=== PATIENT | male | born 1950 | race Caucasian/White ===

== ENCOUNTER 2024-08-13 21:16 | Emergency (ER) | payer OTHER ==
--- OUTSIDE RECORDS SUMMARY | 2024-08-13 21:20 | XMS REPORT | Clinical Summary ---
Author Name Unknown Organization [facility] Address [address] [place] [address] Care Team Providers Care Sexual Assault Counsellor Name Role Phone Yani Valdivia MD Primary Care Provider + [phone] Allergies No known active allergies Medications Medication Sig Dispensed Refills Start Date End Date Status alendronate (FOSAMAX) 35 mg tablet Take 1 tablet (35 mg) by mouth every 7 days. 10/23/2023 Active amLODIPine (NORVASC) 5 mg tablet Take 1 tablet (5 mg) by mouth daily. 08/08/2023 Active atorvastatin (LIPITOR) 20 mg tablet Take 1 tablet (20 mg) by mouth daily. Active glipiZIDE (GLUCOTROL) 5 mg tablet Take 1 tablet (5 mg) by mouth every morning before breakfast. Active levothyroxine (SYNTHROID, LEVOTHROID) 50 mcg tablet Take 1 tablet (50 mcg) by mouth daily. 09/16/2023 Active losartan (COZAAR) 100 mg tablet Take 1 tablet (100 mg) by mouth daily. Active metFORMIN (GLUCOPHAGE) 1000 mg tablet Take 1 tablet (1,000 mg) by mouth 2 (two) times a day with meals. 09/23/2023 Active rosuvastatin (CRESTOR) 5 mg tablet Take 1 tablet (5 mg) by mouth at bedtime. 08/21/2023 Active triamcinolone (KENALOG) ointment 0.1%Indications:Stasis dermatitis Apply twice a day as needed for itching on rash on the lower legs for a max of 2 weeks 80 g 2 10/25/2023 Active Encounters Date Type Department Care Team Description 10/25/2023 2:00 PM BASKET BOTTOM MACHINE OPERATOR Office Visit [facility] - Dermatology [address] [facility], [address] [place] [address] Yani Valdivia MD Melanocytic nevus of trunk (Primary Dx); Seborrheic keratosis; Hemangioma of skin and subcutaneous tissue; Actinic keratosis; Irritated basal cell papilloma; Stasis dermatitis 10/25/2023 1:30 PM BASKET BOTTOM MACHINE OPERATOR NPR MDA PATIENT ACCESS 10/25/2023 Travel after 08/14/2023 Surgical History Surgery Date Site/Laterality Comments HIP ARTHROPLASTY 10/07/2015 - 10/06/2016 Left WRIST SURGERY 10/07/2015 - 10/06/2016 Left LEG SURGERY 10/07/2018 - 10/06/2019 Left Medical History Medical History Date Comments Essential (primary) hypertension Hyperlipidemia Type 2 diabetes mellitus without complication Family History Medical History Relation Name Comments Lung cancer Father -Unknown cancer Mother Relation Name Status Comments Father Mother Social History Tobacco Use Types Packs/Day Years Used Date Smoking Tobacco: Never Passive Smoke Exposure: Never Smokeless Tobacco: Never Alcohol Use Standard Drinks/Week Comments Yes 0 (1 standard drink = 0.6 oz pur e alcohol) Rarely Sex and Gender Information Value Date Recorded Sex Assigned at Not on file Gender Identity Not on file Sexual Orientation Not on file Job Start Date Occupation Industry Not on file Not on file Not on file Obstetrics History Last Filed Vital Signs Vital Sign Reading Time Taken Comments Blood Pressure 129/61 10/25/2023 1:59 PM BASKET BOTTOM MACHINE OPERATOR Pulse 72 10/25/2023 1:59 PM BASKET BOTTOM MACHINE OPERATOR Temperature - - Respiratory Rate 16 10/25/2023 1:59 PM BASKET BOTTOM MACHINE OPERATOR Oxygen Saturation - - Inhaled Oxygen Concentration - - Weight 90.1 kg (198 lb 10.2 oz) 10/25/2023 1:59 PM BASKET BOTTOM MACHINE OPERATOR Height 165 cm (5' 4.96") 10/25/2023 1:59 PM BASKET BOTTOM MACHINE OPERATOR Body Mass Index 33.09 10/25/2023 1:59 PM BASKET BOTTOM MACHINE OPERATOR Plan of Treatment Upcoming Encounters Date Type Department Care Team (Late st Contact Info) Description 08/21/2024 9:45 AM BASKET BOTTOM MACHINE OPERATOR Follow-Up [facility] - Dermatology [address] [facility], [address] [place] [address] Yani Valdivia MD [address] [place] [address] [email or web address] Health Maintenance Due Date Last Done Comments Pneumococcal Vaccine: 65+ Years (1 of 1 - PCV) 013 COVID-19 Vaccine ( - 2023-25 season) 2024 Influenza Vaccine (#1) 2024 Care Teams Sexual Assault Counsellor Relationship Specialty Start Date End Date Yani Valdivia MD [address] [place] [address] [email or web address] PCP - General Dermatology 07/11/23
[2024-08-14] MEDS ORDERED: ONDANSETRON 4 MG/2 ML VIAL ONE (00:25)
[2024-08-14] MEDS ORDERED: MORPHINE 4 MG/ML SYR ONE (00:26)
[2024-08-14 00:48] LABS: Absolute Basophils 0.1 K/uL (0-0.5); Absolute Eosinophils 0.2 K/uL (0-0.5); Absolute Lymphocytes (CBC) 2.2 K/uL (0.7-4.9); Absolute Monocytes 0.7 K/uL (0.1-1.3); Absolute Neutrophil 8.4 K/uL (1.8-8.0); Basophils % 0.9 % (0-1.3); Eosinophils % 1.4 % (0-4.4); Hematocrit 46.1 % (39.6-49.0); Hemoglobin 15.4 g/dL (13.6-17.9); Lymphocytes % 18.8 % (15.3-44.8); MCH 29.4 pg (27.0-35.0); MCHC 33.4 g/dL (32.0-36.0); MCV 88.1 fL (80-100); MPV 9.6 fL (7.6-11.3); Monocytes % 5.7 % (3.3-12.3); Neutrophils % 73.2 % (41.7-73.7); Nucleated Red Blood Cells % 0.1 % (0-0); Platelets 227 thou/uL (152-406); RBC Red Blood Cell Count 5.23 M/uL (4.33-5.43); Red Cell Distribution Width 14.4 % (12.1-15.2)
[2024-08-14 01:11] LABS: Specific Gravity 1.008 (1.005-1.030); Sqamous Epithelial None Seen /HPF (None Seen); Urine Bacteria None Seen /HPF (<20); Urine Bilirubin NEGATIVE (Negative); Urine Blood Negative (Negative); Urine Clarity Clear (Clear); Urine Color Light-Yellow (Yellow); Urine Culture Reflex Order NOT NEEDED; Urine Glucose 3+ (Negative); Urine Ketones TRACE (Negative); Urine Micro Reflex YN NO BILL MICROSCOPIC; Urine Nitrite NEGATIVE (Negative); Urine Protein NEGATIVE (Negative); Urine RBC <5 /HPF (None Seen); Urine Urobilinogen Normal (Normal); Urine WBC None Seen /HPF (<5); Urine pH 6.5 (5.0-7.0)
[2024-08-14 01:13] LABS: Albumin 3.6 g/dL (3.4-5.0); Albumin/Globulin Ratio 0.9 (1.1-1.8); Anion Gap 12.3 mEq/L (5.0-15.0); Bilirubin Total 0.6 mg/dL (0.2-1.0); Globulin 3.9 g/dL (2.3-3.5); Protein, Total 7.5 g/dL (6.4-8.2)
[2024-08-14 01:15] LABS: Potassium 4.3 mEq/L (3.5-5.1)
--- NOTE | 2024-08-14 01:42 | ER ---
Nurse's Notes [facility] Name: Kirill Denton Age: 74 yrs Sex: Male : 1950 Arrival Date: 08/13/2024 Time: 21:16 Bed 7 Private MD: Diagnosis: Lumbago with sciatica, left side Presentation: 08/13 21:39 Coronavirus screen: Client denies travel out of the [place] in the last 14 days. Ebola tm6 Screen: Patient negative for fever greater than or equal to 101.5 degrees Fahrenheit, and additional compatible Ebola Virus Disease symptoms Patient denies exposure to infectious person. Patient denies travel to an Ebola-affected area in the 21 days before illness onset. No symptoms or risks identified at this time. 21:39 Acuity: HERNANDO 3 tm6 21:39 Method Of Arrival: Wheelchair tm6 21:40 Chief complaint: Patient states: had a "twinge" in left lower back for two weeks, but tm6 tonight I was on my riding mower and it started to hurt a lot worse. Initial Sepsis Screen: Does the patient meet any 2 criteria? No. Patient's initial sepsis screen is negative. Does the patient have a suspected source of infection? No. Patient's initial sepsis screen is negative. Risk Assessment: Do you want to hurt yourself or someone else? Patient reports no desire to harm self or others. Onset of symptoms was August 30, 2024. Triage Assessment: 21:41 General: Appears in no apparent distress. Behavior is calm, cooperative. Pain: tm6 Complains of pain in left low back Pain currently is 10 out of 10 on a pain scale. EENT: No signs and/or symptoms were reported regarding the EENT system. Neuro: Level of Consciousness is awake, alert, obeys commands, Oriented to person, place, time, situation. Cardiovascular: Patient's skin is warm and dry. Respiratory: Airway is patent Respiratory effort is even, unlabored, Respiratory pattern is regular, symmetrical. GI: No signs and/or symptoms were reported involving the gastrointestinal system. Abdomen is flat, non-distended. : Reports pain in left flank(s). Derm: No signs and/or symptoms reported regarding the dermatologic system. Musculoskeletal: Reports pain in left low back Pain is 10 out of 10 on a pain scale. Historical: - Allergies: 21:41 No Known Allergies; tm6 - PMHx: 21:41 Diabetes mellitus; Hypertensive disorder; Hypercholesterolemia; Hypothyroidism; polio; tm6 - PSHx: 21:41 left hip repair; bilateral leg surgery from polio; tm6 - Immunization history:: Client reports receiving the 2nd dose of the Covid vaccine. - Infectious Disease History:: Denies. - Social history:: Smoking status: Patient denies any tobacco usage or history of. Patient/guardian denies using alcohol. Screenin/08 01:04 [facility] ED Fall Risk Assessment (Adult) History of falling in the last 3 months, al5 including since admission No falls in past 3 months (0 pts) Confusion or Disorientation No (0 pts) Intoxicated or Sedated No (0 pts) Impaired Gait No (0 pts) Mobility Assist Device Used No (0 pt) Altered Elimination No (0 pt) Score/Fall Risk Level 0 - 2 = Low Risk Oriented to surroundings, Maintained a safe environment, Hourly rounding (assess needs \\T\\ fall precautionary measures) done. Abuse screen: Denies threats or abuse. Denies injuries from another. Nutritional screening: No deficits noted. Tuberculosis screening: No symptoms or risk factors identified. Assessment: 00:24 General: Appears in no apparent distress. uncomfortable, Behavior is calm, cooperative. al5 Pain: Complains of pain in left low back Pain currently is 8 out of 10 on a pain scale. Neuro: Level of Consciousness is awake, alert, obeys commands, Oriented to person, place, time, situation. Cardiovascular: Capillary refill < 3 seconds Patient's skin is warm and dry. Respiratory: Airway is patent Respiratory effort is even, unlabored, Respiratory pattern is regular, symmetrical. GI: Bowel sounds present X 4 quads. Abd is soft and non tender X 4 quads. : Reports pain in left flank(s), in lower back. EENT: No signs and/or symptoms were reported regarding the EENT system. Derm: Skin is intact, Skin is pink, warm \\T\\ dry. normal. Musculoskeletal: No signs and/or symptoms reported regarding the musculoskeletal system. 01:58 Reassessment: Patient appears in no apparent distress at this time. Patient and/or al5 family updated on plan of care and expected duration. Pain level reassessed. Patient is alert, oriented x 3, equal unlabored respirations, skin warm/dry/pink. pain decreased, but still is in pain. Vital Signs: 08/13 21:39 Pulse 79; Resp 18; Temp 98.6(O); Pulse Ox 98% on R/A; Weight 86.18 kg; Height 5 ft. 5 tm6 in. ; Pain 10/10; 21:40 BP 140 / 72; MAP 92 mmHg; tm6 08/14 00:10 BP 133 / 83; Pulse 75; Resp 16; Pulse Ox 95% on R/A; al5 00:30 BP 147 / 67; Pulse 74; Resp 18; Pulse Ox 95% on R/A; al5 01:00 BP 106 / 73; Pulse 74; Resp 17; Pulse Ox 94% on R/A; al5 02:00 BP 131 / 81; Pulse 70; Resp 16; Pulse Ox 97% on R/A; al5 02:15 BP 113 / 81; Pulse 71; Resp 16; Pulse Ox 94% on R/A; al5 02:30 BP 123 / 67; Pulse 68; Resp 15; Pulse Ox 95% on R/A; al5 08/13 21:39 Body Mass Index 31.62 (86.18 kg, 165.1 cm) tm6 08/13 21:39 Pain Scale: Adult tm6 ED Course: 08/13 21:20 Patient arrived in ED. jj6 21:20 Joseph Farmer MD is Attending Physician. ec2 21:25 Inserted saline lock: 22 gauge in right antecubital area, using aseptic technique. ha1 Blood collected. Flushed with 10 mL NS. 21:39 Triage completed. tm6 21:41 Arm band placed on right wrist. tm6 08/14 00:15 Sara Lua, COREY is Primary Nurse. al5 00:52 CT Abd/Pelvis - Without Contrast In Process Unspecified. EDMS 01:05 Patient has correct armband on for positive identification. Bed in low position. Call al5 light in reach. Side rails up X2. Provided Education on: plan of care. 01:05 No provider procedures requiring assistance completed. al5 02:30 IV discontinued, intact, bleeding controlled, No redness/swelling at site. Pressure al5 dressing applied. Administered Medications: 00:35 Drug: Ondansetron IVP 4 mg IVP once; over 2 minutes Route: IVP; Site: right antecubital;al5 02:17 Follow up: Response: No adverse reaction; Nausea is decreased al5 00:35 Drug: morphine IVP or IV 4 mg IVP once over 4 mins Route: IVP; Infused Over: 4 mins; al5 Site: right antecubital; 02:17 Follow up: Response: No adverse reaction; Pain is decreased; Pain is decreased, still al5 in a lot of pain 02:13 Drug: Diazepam IVP 5 mg IVP once Route: IVP; Site: right antecubital; al5 02:40 Follow up: Response: No adverse reaction; Pain is decreased al5 Medication: 01:05 VIS not applicable for this client. al5 Outcome: 01:41 Discharge ordered by . ec2 02:30 Discharged to home via wheelchair, with significant other, al5 02:30 Condition: good 02:30 Discharge instructions given to patient, significant other, Instructed on discharge instructions, follow up and referral plans. medication usage, Demonstrated understanding of instructions, follow-up care, medications, Prescriptions given X 1, 03:11 Patient left the ED. al5 Signatures: Dispatcher [employer] EDSuzette Lawler jj6 Winsome Hernandez RN RN ha1 Joseph Farmer MD MD ec2 Nicanor Betts RN RN tm6 Sara Lua RN RN al5 Corrections: (The following items were deleted from the chart) 08/13 21:43 21:41 PMHx: Hyperthyroidism; tm6 tm6
--- NOTE | 2024-08-14 01:42 | EDPHYS ---
Physician Documentation [facility] Name: Kirill Denton Age: 74 yrs Sex: Male : 1950 Arrival Date: 08/13/2024 Time: 21:16 Bed 7 Private MD: ED Physician Joseph Farmer HPI: 08/14 00:08 This 74 yrs old Male presents to ER via Wheelchair with complaints of Low ec2 Back Pain, Possible Kidney Stone. 00:08 Patient with history of polio arrives today for left lower back pain. Reports pain is ec2 worse with positional movements. No falls injuries or trauma. Improvement with some Tylenol. Patient reports no urinary complaints. Reports history of abdominal hernia which is unchanged for him.. Historical: - Allergies: 08/13 21:41 No Known Allergies; tm6 - PMHx: 21:41 Diabetes mellitus; Hypertensive disorder; Hypercholesterolemia; Hypothyroidism; polio; tm6 - PSHx: 21:41 left hip repair; bilateral leg surgery from polio; tm6 - Immunization history:: Client reports receiving the 2nd dose of the Covid vaccine. - Infectious Disease History:: Denies. - Social history:: Smoking status: Patient denies any tobacco usage or history of. Patient/guardian denies using alcohol. ROS: 08/14 00:08 Constitutional: as per hpi ec2 Exam: 00:08 Constitutional: GEN: NAD Head: atraumatic Eyes: EOMI Ears: External ears are ec2 normal. CV: regular rate LUNGS: no respiratory distress ABD: non-distended SKIN: no evidence of rashes MSK: no evidence of trauma, no c/t/l spine ttp, mild L flank ttp Vital Signs: 08/13 21:39 Pulse 79; Resp 18; Temp 98.6(O); Pulse Ox 98% on R/A; Weight 86.18 kg; Height 5 ft. 5 tm6 in. ; Pain 10/10; 21:40 BP 140 / 72; MAP 92 mmHg; tm6 08/14 00:10 BP 133 / 83; Pulse 75; Resp 16; Pulse Ox 95% on R/A; al5 00:30 BP 147 / 67; Pulse 74; Resp 18; Pulse Ox 95% on R/A; al5 01:00 BP 106 / 73; Pulse 74; Resp 17; Pulse Ox 94% on R/A; al5 02:00 BP 131 / 81; Pulse 70; Resp 16; Pulse Ox 97% on R/A; al5 02:15 BP 113 / 81; Pulse 71; Resp 16; Pulse Ox 94% on R/A; al5 02:30 BP 123 / 67; Pulse 68; Resp 15; Pulse Ox 95% on R/A; al5 08/13 21:39 Body Mass Index 31.62 (86.18 kg, 165.1 cm) tm6 08/13 21:39 Pain Scale: Adult tm6 MDM: 00:08 Data reviewed: vital signs, nurses notes. ED course: Patient arrives today for left leg ec2 pain. Examination remarkable for findings as above. Will obtain lab work, CT imaging. Differential includes MSK pain. Additionally considered ureteral stone.. 01:40 ED course: CT imaging with no acute process. Will discharge home. Return precautions ec2 given. Will give patient additional dose of Valium for MSK pain. Will prescribe Robaxin. Suspect MSK pain. . 08/14 00:08 Order name: CBC with Diff; Complete Time: 01:10 ec2 08/14 00:08 Order name: CMP; Complete Time: :17 ec2 08/14 00:08 Order name: Lipase; Complete Time: :17 ec2 08/14 00:08 Order name: UAM; Complete Time: :17 ec2 08/14 00:08 Order name: CT Abd/Pelvis - Without Contrast ec2 08/14 00:08 Order name: IV Saline Lock; Complete Time: 00:16 ec2 08/14 00:08 Order name: Labs collected and sent; Complete Time: 00:16 ec2 Administered Medications: 00:35 Drug: Ondansetron IVP 4 mg IVP once; over 2 minutes Route: IVP; Site: right antecubital;al5 02:17 Follow up: Response: No adverse reaction; Nausea is decreased al5 00:35 Drug: morphine IVP or IV 4 mg IVP once over 4 mins Route: IVP; Infused Over: 4 mins; al5 Site: right antecubital; 02:17 Follow up: Response: No adverse reaction; Pain is decreased; Pain is decreased, still al5 in a lot of pain 02:13 Drug: Diazepam IVP 5 mg IVP once Route: IVP; Site: right antecubital; al5 02:40 Follow up: Response: No adverse reaction; Pain is decreased al5 Disposition Summary: 08/14/24 01:41 Discharge Ordered Notes: Location: Home ec2 Condition: Stable ec2 Diagnosis - Lumbago with sciatica, left side ec2 Followup: ec2 - With: Private Physician - When: - Reason: Re-evaluation by your physician Discharge Instructions: - Discharge Summary Sheet ec2 - Sciatica ec2 Forms: - Medication Reconciliation Form ec2 - Antibiotic Education ec2 - Prescription Opioid Use ec2 - Patient Portal Instructions ec2 - Leadership Thank You Letter ec2 Prescriptions: - methocarbamol 500 mg Oral tablet - take 2 tablets ORAL route 4 times per day; 30 tablet; Refills: 0, Product ec2 Selection Permitted Signatures: Dispatcher [employer] Joseph Mercado MD MD ec2 Nicanor Betts RN RN tm6 Sara Lua RN RN al5 Corrections: (The following items were deleted from the chart) 08/13 21:43 21:41 PMHx: Hyperthyroidism; tm6 tm6 23:42 21:52 Medical Screening Exam initiated ec2 ec2
[2024-08-14] MEDS ORDERED: DIAZEPAM 10 MG/2 ML INJ SYRINGE ONE (02:09)
--- NOTE | 2024-08-14 02:44 | RAD REPORT ---
EXAM DESCRIPTION: Abdomen Pelvis Wo Contrast RadLex: CT ABDOMEN PELVIS WITHOUT IV CONTRAST CLINICAL HISTORY: 74 years Male; L flank pain; NO CONTRAST Bed Name: 7 TECHNIQUE: CT of the abdomen and pelvis without contrast. All CT scans at this facility use dose modulation, iterative reconstruction, and/or weight based dosi ng when appropriate to reduce radiation dose to as low as reasonably achievable. COMPARISON: None. FINDINGS: Lower thorax: Right lower lobe calcified granuloma. Coronary artery calcifications. Abdomen: Stomach: Within normal limits Liver: Subcentimeter hypodensity in the anterior liver. No intrahepatic ductal distention. Gallbladder: Nondistended Pancreas: Within normal limits Spleen: Within normal limits Right kidney: No hydronephrosis. No renal or ureteral calculi. Left kidney: No hydronephrosis. Multiple renal stones. Adrenal glands: Within normal limits Vascular structures: Atherosclerosis of the abdominal aorta and major branches. Lymph nodes: No lymphadenopathy by size criteria Pelvis: Small bowel: No significant distention. Appendix: Within normal limits Colon: No distention or acute pericolonic edema. Large stool burden. Peritoneum: No free intraperitoneal fluid or air. Bones: No acute bone findings. Surgical fixation changes of the left femur. Bladder: Unremarkable. Reproductive organs: No acute findings. Soft tissues: Moderate fat-containing umbilical hernia. Note that evaluation of the bowel and solid organs is somewhat limited due to lack of intravenous and oral contrast. IMPRESSION: 1. Left-sided nephrolithiasis. No hydronephrosis. 2. Large stool burden. Electronically signed by: Driss Fuchs MD 08/14/2024 01:12 AM [facility] Z9 Due to temporary technical issues with the [email or web address] reporting system, reports are being tal d by the in-house radiologist without review as a courtesy to ensure prompt reporting the interpreting radiologist is fully responsible for the content of the report. Transcribed Date/Time: 08/14/2024 2:44 AM
[2024-08-14 03:31] VITALS: TEMP 98.6
[2024-08-14 03:48] VITALS: BP 123/67; O2SAT 95
== END 2024-08-14 03:11 | disposition home or self-care (01) ==
LOC: ER 21:16
DX: M54.42 Lumbago with sciatica, left side (principal); E11.9 Type 2 diabetes mellitus without complications; I10 Essential (primary) hypertension
CPT/HCPCS: 85025; 81001; 36415; 83690; 80053; 74176; 96375; 96374; 99284; J3360; J2405